=== PATIENT | male | born 1990 | race Caucasian/White ===

== ENCOUNTER 2024-12-23 22:51 | Emergency (ER) | payer MEDICAID ==
[~2024-12-23] VITALS: Ht 157.5 cm; Wt 73.6 kg
[2024-12-24] MEDS: PERTUSS(ACELL),DIPH,TET/PF 0.5 ML SYRINGE [ADULT] IM. ONE (04:32)
[2024-12-24 04:57] VITALS: BP 121/68; PULSE 70; RESP 18; TEMP 98.3; O2SAT 99
== END 2024-12-24 06:20 | disposition home or self-care (01) ==
LOC: EMS 22:55
DX: S00.83XA Contusion of other part of head, initial encounter (principal); S00.01XA Abrasion of scalp, initial encounter; Y04.0XXA Assault by unarmed brawl or fight, initial encounter; Y93.89 Activity, other specified; Y92.89 Other specified places as the place of occurrence of the external cause; Y99.8 Other external cause status
CPT/HCPCS: 70450; 70486; 90471; 90715; 99285